=== PATIENT | male | born 1975 | race Caucasian/White ===

== ENCOUNTER → 2017-07-21 13:03 | Outpatient (CLI) | payer OTHER, SELFPAY ==
[2017-07-21 15:19] LABS: Rubella Antibody IgG 29.2 IU/mL (>15)
[2017-07-25 16:25] LABS: Mumps Virus IgG Antibody > 300.00 AU/mL (< 9.00)
== END ==
PROVIDERS: PCP Nurse Practitioner Family; Visit Provider Nurse Practitioner Family
DX: Z01.84 Encounter for antibody response examination (principal)
CPT/HCPCS: 36415; 86735; 86762; 86765

== ENCOUNTER → 2017-09-15 12:06 | Outpatient (CLI) | payer OTHER, SELFPAY ==
--- NOTE | 2017-09-15 | DI.RAD.S_ITS ---
PROCEDURE: XR HAND RT MIN 3V INDICATIONS: RIGHT HAND AND RIGHT 3RD DIGIT. TECHNIQUE: AP, lateral, and oblique views of the hand(s) acquired. COMPARISON: None. FINDINGS: Bones: No displaced fractures or dislocations. There is cortical irregularity at the anterior/volar proximal base of the third digit middle phalanx. Carpal bones are normally aligned. No suspicious bony lesions. Soft tissues: No suspicious soft tissue calcifications. IMPRESSION: Cortical irregularity at the anterior/volar base of the third digit middle phalanx; recommend correlation with point tenderness to exclude acute fracture. Otherwise unremarkable radiographs of the right hand. Dictated by: Mo Wadsworth M.D. on 09/15/2017 at 12:37 Approved by: Mo Wadsworth M.D. on 09/15/2017 at 13:00
== END ==
PROVIDERS: PCP Nurse Practitioner Family; Visit Provider Nurse Practitioner Family
DX: M79.641 Pain in right hand (principal); M79.644 Pain in right finger(s)
CPT/HCPCS: 73130

== ENCOUNTER → 2021-12-16 11:11 | Outpatient (CLI) | payer OTHER, SELFPAY ==
--- NOTE | 2021-12-16 | DI.RAD.S_ITS ---
PROCEDURE: XR CHEST 2V INDICATIONS: chest pain TECHNIQUE: 2 views of the chest were acquired. COMPARISON: None. FINDINGS: Surgical changes and devices: None. Lungs and pleura: Lungs are clear. No pleural effusions or pneumothorax. Mediastinum: Mediastinal contours are normal. Heart size is normal. Bones and chest wall: No suspicious bony abnormalities. Soft tissues appear unremarkable. IMPRESSION: No acute process. Dictated by: Ailyn Damon M.D. on 12/16/2021 at 11:53 Approved by: Ailyn Damon M.D. on 12/16/2021 at 11:53
== END ==
PROVIDERS: PCP Registered Nurse; Referring Provider Registered Nurse; Visit Provider Registered Nurse
DX: R07.9 Chest pain, unspecified (principal)
CPT/HCPCS: 71046

== ENCOUNTER → 2021-12-30 14:43 | Outpatient (CLI) | payer OTHER, SELFPAY ==
--- NOTE | 2021-12-30 14:44 | DI.ECHO.S_ITS ---
[facility] +---------+ Hospital +---------+ : : [address] [place] : : : : [id number] : : : : Phone: [phone] Echocardiogram Report + + :Name: SUSAN CARROLL Study Date: 12/30/2021 Height: 70 in : :[facility] ReadingLocation: Weight: 155 lb : : Gender: Male BSA: 1.9 m2 : :: 1975 Age: 46 yrs BP: 134/81 mmHg: :Reason For Study: Chest pain : :Ordering Physician: FERNANDO, : :CLIFF Performed By: Ángel Hackett : :Referring: CLIFF KING : + + Interpretation Summary The left ventricle is normal in size and wall thickness. Left ventricular systolic function is normal. The ejection fraction is estimated to be 55-60%. There are no focal wall motion abnormalities. Diastolic parameters suggest probable normal left ventricular diastolic function and normal filling pressures. The right ventricle is normal in size and function. The right ventricular systolic pressure is estimated to be at least 25 mmHg based on an estimated right atrial pressure of 8 mm Hg. Both atria are normal in size. There is mild mitral regurgitation. There is no other significant valvular heart disease. The aortic root is normal size. Procedure: A two-dimensional transthoracic echocardiogram with color flow and Doppler was performed. The study quality was technically adequate. There is no prior echocardiogram noted for this patient. The patient was in normal sinus rhythm during the exam. Left Ventricle: The left ventricle is normal in size and wall thickness. Left ventricular systolic function is normal. The ejection fraction is estimated to be 55-60%. There are no focal wall motion abnormalities. Diastolic parameters suggest probable normal left ventricular diastolic function and normal filling pressures. Right Ventricle: The right ventricle is normal in size and function. Atria: Both atria are normal in size. The interatrial septum grossly appears intact with no obvious evidence for an atrial septal defect. Mitral Valve: The mitral valve is normal in structure and function. There is mild mitral regurgitation. Aortic Valve: The aortic valve is normal in structure and function. No aortic regurgitation is present. Tricuspid Valve: The tricuspid valve is normal in structure and function. There is trace tricuspid regurgitation. The right ventricular systolic pressure is estimated to be at least 25 mmHg based on an estimated right atrial pressure of 8 mm Hg. Pulmonic Valve: The pulmonic valve is not well seen, but is grossly normal. There is no pulmonic valvular regurgitation. There is no other significant valvular heart disease. Great Vessels: The aortic root is normal size. The ascending aorta could not be visualized. The IVC is dilated (diameter is greater than 2.1 cm) yet it collapses greater than 50% with a sniff. This suggests a right atrial pressure of 8 mm Hg. Pericardium/ Pleura There is no pericardial effusion. There is no pleural effusion. MMode/2D Measurements & Calculations LVIDd: 5.2 cm LVOT diam: 2.1 cm LVIDs: 3.3 cm Ao root diam: 3.3 cm FS: 36.5 % IVSd: 1.0 cm LVPWd: 0.90 cm LV gao. diameter/BSA (cm/m^2): 2.8 LV sys. diameter/BSA (cm/m^2): 1.8 LA dimension: 4.0 cm RA long axis: 5.1 cm LA A2 area: 17.0 cm2 IVC diam: 2.6 cm LA A4 area: 18.2 cm2 LA length (vol): 5.5 cm LA vol: 47.8 ml LA vol index: 25.5 ml/m2 TAPSE_phl: 2.6 cm Doppler Measurements & Calculations Ao V2 max: 126.0 cm/sec LVOT Max Maximiliano: 129.0 cm/sec Ao V2 mean: 90.4 cm/sec LV V1 max P.7 mmHg Ao max P.0 mmHg LV V1 VTI: 29.0 cm Ao mean P.0 mmHg LATHA(I,D): 3.4 cm2 Ao V2 VTI: 29.6 cm LATHA(V,D): 3.5 cm2 sev ratio: 0.98 LATHA indexed to BSA (cm^2/m^2): 1.8 MV E max maximiliano: 74.1 cm/sec TR max maximiliano: 204.0 cm/sec MV A max maximiliano: 40.3 cm/sec TR max P.6 mmHg MV E/A: 1.8 Med Peak E' Maximiliano: 8.4 cm/sec E/E' med: 8.8 Lat Peak E' Maximiliano: 16.0 cm/sec E/E' lat: 4.6 E/e' average: 6.7 MV dec time: 0.17 sec SV(LVOT): 100.4 ml AV VR_phl: 1.0 LATHA(VTI)/BSA_phl: 1.8 MV P1/2t-pr_phl: 50.0 msec Reading Physician:04:10 PM
== END ==
PROVIDERS: PCP Registered Nurse; Referring Provider Registered Nurse; Visit Provider Registered Nurse
DX: I34.0 Nonrheumatic mitral (valve) insufficiency (principal); R07.89 Other chest pain; Z86.16 Personal history of COVID-19
CPT/HCPCS: 93306

== ENCOUNTER → 2022-01-13 07:05 | Outpatient (CLI) | payer OTHER, SELFPAY ==
[2022-01-13 07:44] LABS: COVID19 -Nasal RAPID Negative (Negative)
--- NOTE | 2022-01-13 19:39 | DI.NM.S_ITS ---
DATE OF SERVICE: 01/13/2022 PROCEDURE: Exercise treadmill stress test without imaging. ORDERING PROVIDER: Tiffany FREGOSO. INDICATIONS: The patient is a 46-year-old male with recent atypical chest tightness and tachycardia. FINDINGS: 1. The patient was able to exercise for 15 minutes, 28 seconds on a standard Jasiel protocol, suggesting excellent exercise capacity with an SHADI of -36%, achieving 14.8 METs. 2. He had a normal heart rate and blood pressure response to exercise, achieving a maximum heart rate of 179 BPM (103% of his predicted maximum). 3. He had no chest discomfort or other anginal symptoms. 4. His resting ECG shows sinus rhythm with normal ST segments. He develops [address] depression at high workloads that resolves within 30 seconds of recovery and thus is nonspecific. There are no late ST or T-wave abnormalities. He had rare isolated PVC, but no complex ventricular ectopy. IMPRESSION: 1. Normal exercise stress test for ischemia. 2. Excellent exercise capacity without angina and only rare isolated PVCs. Matthew Arriola - CHANTALE/mitch/ania doc#: [id number]/job#: [id number] dd: 01/13/2022 17:57:00 dt: 01/13/2022 19:05:00 DICTATING /COPIES TO: Xavi Young MD COPIES MNE: TERRY
== END ==
PROVIDERS: PCP Registered Nurse; Referring Provider Registered Nurse; Visit Provider Registered Nurse
DX: R07.89 Other chest pain (principal); R00.0 Tachycardia, unspecified; Z20.822 Contact with and (suspected) exposure to COVID-19; Z86.16 Personal history of COVID-19
CPT/HCPCS: 87635; 93017

== ENCOUNTER 2022-10-30 11:38 | Emergency (ER) | payer OTHER, SELFPAY ==
[2022-10-30] VITALS (17 sets, daily range): BP systolic 106–133; BP diastolic 60–79; PULSE 78–86; RESP 12–22; TEMP 36.7; O2SAT 93–100; BMI 24.3
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
[2022-10-30 12:10] LABS: Add Manual Diff / Slide Review NO; Basophils Absolute Auto 0 /uL (0-100); Basophils Percent Auto 0.7 % (0-2); Eosinophils Absolute Auto 100 /uL (0-450); Hematocrit 43.3 % (41-53); Hemoglobin 15.1 g/dL (13.5-17.5); Lymphocytes Absolute Auto 2400 /uL (1100-4500); Lymphocytes Percent Auto 36.2 % (25-40); Mean Corpuscular HGB Conc 34.9 % (30-36); Mean Corpuscular Volume 91.6 fL (80-100); Monocytes Absolute Auto 400 /uL (0-900); Monocytes Percent Auto 6.4 % (3-14); Neutrophils Absolute Auto 3600 /uL (1500-7000); Neutrophils Percent Auto 54.7 % (50-75); Platelet Count 154 X10^3/uL (150-400); Red Blood Cell Count 4.73 X10^6/uL (4.5-5.9); Red Cell Distribution Width 13.3 % (11.6-14.8); White Blood Cell Count 6.6 X10^3/uL (4.5-11.0)
[2022-10-30 12:17] LABS: Alanine Aminotransferase 23 IU/L (<50); Albumin 4.2 g/dL (3.5-5.0); Albumin Globulin Ratio 1.4 (1.0-2.8); Alkaline Phosphatase 83 U/L (38-126); Aspartate Aminotransferase 37 IU/L (17-59); BUN Creatinine Ratio 20.5 (6-22); Bilirubin Total 1.4 mg/dL (0.2-1.3); Blood Urea Nitrogen 18 mg/dL (9-20); Calcium 9.9 mg/dL (8.4-10.2); Carbon Dioxide 27 mmol/L (22-32); Chloride 104 mmol/L (98-107); Estimated Glomerular Filt Rate > 60 mL/min (>60); Glucose 105 mg/dL (70-100); HEMOLYSIS 19 (0-50); Lipase 138 U/L (23-300); Potassium 4.5 mmol/L (3.4-5.1); Sodium 140 mmol/L (137-145); Total Protein 7.2 g/dL (6.3-8.2)
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
[2022-10-30] MEDS: MORPHINE 4 MG/ML INJ IV ×2 (12:38→14:12)
[2022-10-30 14:28] LABS: COVID19 -Nasal RAPID Negative (Negative)
[2022-10-30] MEDS: HYDROMORPHONE 1 MG INJ IV (15:02)
--- NOTE | 2022-10-30 15:08 | PC.NURSE ---
Gave report to NWDebra. Pt A&Ox4 on departure.
== END 2022-10-30 15:25 | disposition short-term general hospital (02) ==
PROVIDERS: Emergency Provider Emergency Medicine; PCP Registered Nurse
DX: S06.0X0A Concussion without loss of consciousness, initial encounter (principal); S32.402A Unspecified fracture of left acetabulum, initial encounter for closed fracture; S00.81XA Abrasion of other part of head, initial encounter; S50.12XA Contusion of left forearm, initial encounter; V19.9XXA Pedal cyclist (driver) (passenger) injured in unspecified traffic accident, initial encounter; Z20.822 Contact with and (suspected) exposure to COVID-19
CPT/HCPCS: 36415; 70450; 71045; 72125; 72192; 73502; 80053; 83690; 85025; 87635; 96374; 96375; 96376; 99285; C9803; J1170; J2270

== ENCOUNTER → 2022-12-21 07:35 | Outpatient (CLI) | payer OTHER, SELFPAY | PROVIDERS: PCP Registered Nurse; Visit Provider Nurse Practitioner Family | DX: M54.9 Dorsalgia, unspecified (principal) | CPT/HCPCS: 87086 ==

== ENCOUNTER → 2022-12-21 07:49 | Outpatient (CLI) | payer OTHER, SELFPAY ==
--- NOTE | 2022-12-21 07:50 | DI.RAD.S_ITS ---
PROCEDURE: XR CHEST 2V INDICATIONS: Chest pain with inspiration TECHNIQUE: 2 views of the chest were acquired. COMPARISON: [facility], CR, XR CHEST 1V, 10/30/2022, 11:50. [facility], CR, XR CHEST 2V, 12/16/2021, 11:21. FINDINGS: Surgical changes and devices: None. Lungs and pleura: Lungs are clear. No pleural effusions or pneumothorax. Mediastinum: Mediastinal contours are normal. Heart size is normal. Bones and chest wall: No suspicious bony abnormalities. Soft tissues appear unremarkable. IMPRESSION: No acute cardiopulmonary abnormality is seen. Dictated by: Baltazar Gilliam M.D. on 12/21/2022 at 9:29 Approved by: Baltazar Gilliam M.D. on 12/21/2022 at 9:30
== END ==
PROVIDERS: PCP Registered Nurse; Referring Provider Nurse Practitioner Family; Visit Provider Nurse Practitioner Family
DX: M54.9 Dorsalgia, unspecified (principal)
CPT/HCPCS: 71046; 87086

== ENCOUNTER → 2023-03-27 12:38 | Outpatient (CLI) | payer OTHER, SELFPAY ==
[2023-03-27 15:32] LABS: Vitamin B12 628 pg/mL (239-931)
[2023-03-27 16:00] LABS: HIV 1 & 2 Ab/Ag 4th Gen Combo NEGATIVE (NEGATIVE); Hep C Virus Ab w/Reflex Quant NEGATIVE s/c (NEGATIVE)
== END ==
LOC: LAB 12:39
PROVIDERS: PCP Family Medicine; Referring Provider Family Medicine; Visit Provider Family Medicine
DX: Z11.59 Encounter for screening for other viral diseases (principal); E53.8 Deficiency of other specified B group vitamins; Z11.4 Encounter for screening for human immunodeficiency virus [HIV]
CPT/HCPCS: 36415; 82607; 86803; 87389

== ENCOUNTER → 2024-01-27 08:06 | Outpatient (CLI) | payer OTHER, SELFPAY ==
[2024-01-27 09:15] LABS: Hematocrit 42.7 % (41-53); Hemoglobin 14.9 g/dL (13.5-17.5); Mean Corpuscular HGB Conc 34.9 % (30-36); Mean Corpuscular Hemoglobin 32.2 PG (26-34); Mean Corpuscular Volume 92.4 fL (80-100); Platelet Count 178 X10^3/uL (150-400); Red Blood Cell Count 4.62 X10^6/uL (4.5-5.9); Red Cell Distribution Width 12.9 % (11.6-14.8); White Blood Cell Count 4.3 X10^3/uL (4.5-11.0)
[2024-01-27 09:26] LABS: Hemoglobin A1C% w Est Avg Glu 4.9 % (4.0-6.0)
[2024-01-27 09:29] LABS: BUN Creatinine Ratio 15.7 (6-22); Blood Urea Nitrogen 16 mg/dL (9-20); Calcium 9.6 mg/dL (8.4-10.2); Carbon Dioxide 30 mmol/L (22-32); Chloride 105 mmol/L (98-107); Cholesterol 146 mg/dL (140-199); Estimated Glomerular Filt Rate > 60 mL/min (>60); Glucose 87 mg/dL (70-100); HDL Cholesterol 51 mg/dL (40-60); HEMOLYSIS < 15 (0-50); Iron 92 ug/dL (49-181); LDL Cholesterol Calculated 84 mg/dL (<100); Sodium 140 mmol/L (137-145); Triglycerides 54 mg/dL (35-150)
[2024-01-27 09:40] LABS: Percent Iron Saturation 36 % (20-50); Total Iron Binding Capacity 256 ug/dL (261-462); Transferrin 212 mg/dL (206-381)
[2024-01-27 09:45] LABS: Vitamin D 25 Hydroxy (D3) 29.7 ng/mL (30.0-100.0)
[2024-01-27 10:04] LABS: Ferritin 43 ng/mL (18-464)
[2024-01-27 10:18] LABS: Vitamin B12 Reflex MMA if <400 657 pg/mL (239-931)
== END ==
PROVIDERS: PCP Family Medicine; Referring Provider Family Medicine; Visit Provider Family Medicine
DX: Z13.220 Encounter for screening for lipoid disorders (principal); Z13.21 Encounter for screening for nutritional disorder; Z78.9 Other specified health status; E53.8 Deficiency of other specified B group vitamins; R20.0 Anesthesia of skin
CPT/HCPCS: 36415; 80048; 80061; 82306; 82607; 82728; 83036; 83540; 83550; 85027